=== PATIENT | female | born 1955 | race Caucasian/White ===

== ENCOUNTER → 2020-10-17 | Outpatient (CLI) | payer MEDICARE, OTHER ==
[~2020-10-17] MED LIST: NORCO 7.5-3251 EACH PO
== END ==
LOC: RT 09:46
DX: Z51.81 Encounter for therapeutic drug level monitoring (principal); Z79.899 Other long term (current) drug therapy; R94.31 Abnormal electrocardiogram [ECG] [EKG]
CPT/HCPCS: 93005

== ENCOUNTER 2021-08-20 20:00 | Inpatient (IN) | payer MEDICARE, OTHER ==
[~2021-08-20] VITALS: Ht 167.6 cm; Wt 56.7 kg
[2021-08-20 21:00] LABS: HEMOGLOBIN 11.2 gm/dl (12.3-15.3); RED BLOOD COUNT 4.61 M/UL (4.00-5.10)
[2021-08-20 21:03] LABS: BUN/CREATININE RATIO 42 (0-10)
[2021-08-20 21:09] LABS: WHITE BLOOD COUNT 48.6 K/UL (4.5-11.0)
[2021-08-21 00:38] LABS: BUN/CREATININE RATIO 46 (0-10)
[2021-08-21] MEDS ORDERED: MONTELUKAST SOD10 MG PO (01:39)
[2021-08-21] MEDS ORDERED: CRESTOR20 MG PO (01:39)
[2021-08-21] MEDS ORDERED: METHADONE HCL T10 MG PO (01:40)
[2021-08-21] MEDS ORDERED: IBUPROFEN400 MG PO (01:41)
[2021-08-21] MEDS ORDERED: GABAPENTIN300 MG PO (01:41)
[2021-08-21] MEDS ORDERED: FAMOTIDINE40 MG PO (01:41)
[2021-08-21] MEDS ORDERED: GLUCOPHAGE XR500 M1 PO (01:42)
[2021-08-21] MEDS ORDERED: LISINOPRIL10 MG PO (01:43)
[2021-08-21 05:30] LABS: HEMOGLOBIN 10.8 gm/dl (12.3-15.3); RED BLOOD COUNT 4.35 M/UL (4.00-5.10)
[2021-08-21 05:39] LABS: WHITE BLOOD COUNT 34.1 K/UL (4.5-11.0)
[2021-08-21 05:47] LABS: BUN/CREATININE RATIO 46 (0-10)
[2021-08-21 09:10] LABS: BUN/CREATININE RATIO 52 (0-10)
[2021-08-21 11:27] LABS: BUN/CREATININE RATIO 43 (0-10)
[2021-08-21 15:59] LABS: BUN/CREATININE RATIO 41 (0-10)
[2021-08-21 19:47] LABS: BUN/CREATININE RATIO 33 (0-10)
[2021-08-21 23:07] LABS: BUN/CREATININE RATIO 30 (0-10)
[2021-08-22 03:46] LABS: HEMOGLOBIN 9.3 gm/dl (12.3-15.3)
[2021-08-22 03:50] LABS: RED BLOOD COUNT 3.73 M/UL (4.00-5.10)
[2021-08-22 04:00] LABS: BUN/CREATININE RATIO 25 (0-10)
[2021-08-22 07:20] LABS: BUN/CREATININE RATIO 28 (0-10)
[2021-08-23 05:12] LABS: HEMOGLOBIN 8.3 gm/dl (12.3-15.3); RED BLOOD COUNT 3.39 M/UL (4.00-5.10)
[2021-08-23 05:13] LABS: WHITE BLOOD COUNT 7.8 K/UL (4.5-11.0)
[2021-08-23 05:31] LABS: BUN/CREATININE RATIO 20 (0-10)
[2021-08-24 04:52] LABS: HEMOGLOBIN 9.4 gm/dl (12.3-15.3); WHITE BLOOD COUNT 6.9 K/UL (4.5-11.0)
[2021-08-24 04:54] LABS: RED BLOOD COUNT 3.81 M/UL (4.00-5.10)
[2021-08-24 05:45] LABS: BUN/CREATININE RATIO 15 (0-10)
[2021-08-25 08:23] LABS: RED BLOOD COUNT 3.74 M/UL (4.00-5.10); WHITE BLOOD COUNT 6.1 K/UL (4.5-11.0)
[2021-08-25 08:59] LABS: BUN/CREATININE RATIO 15 (0-10)
[2021-08-27 07:25] LABS: BUN/CREATININE RATIO 17 (0-10)
[2021-08-27] MEDS ORDERED: LISINOPRIL2.5 MG PO (08:50)
[2021-08-27] MEDS ORDERED: LANTUS INS100 UTS/M1 SC (08:50)
[2021-08-27] MEDS ORDERED: HUMALOG 10100 UNITS/ SC (08:50)
== END 2021-08-27 14:27 | disposition home health service (06) | DRG 637 ==
LOC: ER1 20:00 → CCU 22:24 → CDU 22:24 → CCU 22:29 → M/S 08-24 12:26
PROVIDERS: Internal Medicine; Student in an Organized Health Care Education/Training Program; ADMIT Internal Medicine
DX: E11.10 Type 2 diabetes mellitus with ketoacidosis without coma (principal); R57.1 Hypovolemic shock; I10 Essential (primary) hypertension; E87.5 Hyperkalemia; E87.6 Hypokalemia; Z20.822 Contact with and (suspected) exposure to COVID-19; Z80.0 Family history of malignant neoplasm of digestive organs; Z79.899 Other long term (current) drug therapy; Z79.4 Long term (current) use of insulin
CPT/HCPCS: 36415; 36600; 51701; 71045; 80048; 80053; 80202; 81001; 82009; 82550; 82553; 82803; 82962; 83036; 83605; 83874; 84132; 84484; 85025; 87040; 87086; 96365; 96375; 97116-GP-CQ; 97161; 97166; 97530-GP-CQ; 99285; C9113; J1650; J2405; J2543; J3370; J3480; J7030; J7050; J7070; U0002; U0003